=== PATIENT | female | born 1985 | race Caucasian/White ===

== ENCOUNTER → 2017-02-06 | Outpatient (CLI) | payer BC | END | disposition home or self-care (01) | LOC: LABWHC1 15:31 | PROVIDERS: ATTEND Obstetrics & Gynecology | DX: Z34.80 Encounter for supervision of other normal pregnancy, unspecified trimester (principal) | CPT/HCPCS: 36415; 84702 ==

== ENCOUNTER → 2017-02-10 | Outpatient (CLI) | payer BC ==
[2017-02-10 16:06] LABS: CH 33.3; CHCM 33.8; HDW 2.19; HGB 12.5 gm/dL (11.4-16.0); MCH 32.5 pg (25.0-35.0); MCHC 32.9 g/dL (31.0-37.0); MCV 98.8 fL (80.0-100.0); Mean Platelet Volume 7.6; RBC 3.85 m/uL (3.80-5.40); WBC 7.9 k/uL (3.8-10.6)
[2017-02-10 16:20] LABS: Glucose 81 mg/dL (74-99); Non-African American GFR(MDRD) >60 (>60 ml/min/1.73 sqM)
[2017-02-10 19:11] LABS: Hepatitis B Surface Ag Index 0.06
[2017-02-11 01:17] LABS: Treponemal Ab Non-Reactive (Non-Reactive)
[2017-02-11 04:26] LABS: Toxoplasma Antibody (IgG) <3.0 IU/mL (<7.2)
== END | disposition home or self-care (01) ==
LOC: LABWHC1 15:37
PROVIDERS: ATTEND Obstetrics & Gynecology
DX: Z34.81 Encounter for supervision of other normal pregnancy, first trimester (principal)
CPT/HCPCS: 36415; 82565; 82947; 84702; 85027; 86762; 86777; 86778; 86780; 86850; 86900; 86901; 87340; 87390

== ENCOUNTER → 2017-02-19 | Outpatient (CLI) | payer BC | END | disposition home or self-care (01) | LOC: LABWHC1 15:55 | PROVIDERS: ATTEND Obstetrics & Gynecology | DX: O02.1 Missed abortion (principal) | CPT/HCPCS: 36415; 84702 ==

== ENCOUNTER 2017-02-28 05:54 | Day surgery (SDC) | payer BC ==
[2017-02-25 15:46] VITALS: BMI 21.9
--- NOTE | 2017-02-27 12:56 | P.HPOB ---
History of Present Illness H&P Date: 02/27/17 Chief Complaint: Missed This patient is a pleasant 31-year-old 5 para 3 living 2 female who called my office after having a positive test with an IUD. Patient's IUD was found to be in the proper position and a gestational sac in the uterus above the IUD. IUD was subsequently removed. Patient's serial ultrasounds have shown a persistent empty gestational sac the patient most recently has begun bleeding and these findings are consistent with a missed . Patient is now requesting suction D&C for treatment. Review of Systems Constitutional: Denies chills, Denies fever Cardiovascular: Denies chest pain, Denies shortness of breath Respiratory: Denies cough Gastrointestinal: Reports heartburn Genitourinary: Reports Menstruation: Reports as per HPI Past Medical History Additional Past Medical History / Comment(s): CURRENT MISSED AB. History of Any Multi-Drug Resistant Organisms: None Reported Additional Past Surgical History / Comment(s): D&C. Past Anesthesia/Blood Transfusion Reactions: No Reported Reaction Past Psychological History: No Psychological Hx Reported Smoking Status: Light tobacco smoker Past Drug Use History: None Reported - Past Family History Mother Family Medical History: No Reported History Medications and Allergies Home Medications Medication Instructions Recorded Confirmed Type No Known Home Medications [No 02/25/17 02/25/17 History Known Home Medications] Allergies Allergy/AdvReac Type Severity Reaction Status Date / Time No Known Allergies Allergy Verified 02/25/17 15:15 Exam - OBG Physical Exam Vulva: both: normal Vagina: normal moisture, no discharge Cervix: no lesion, no discharge Uterus: enlarged (Uterus is 5 weeks size) Results Patient's blood type is O+. Serial ultrasounds show a nonviable gestational sac approximately 5-6 weeks. Assessment and Plan (1) Missed Narrative/Plan: This is a pleasant 31-year-old 5 para 3 female with a 5-6 week missed . Patient is requesting suction D&C at this time. Patient I discussed the surgery and risks including risks of infection, bleeding, possible uterine perforation. All the patient's questions and answered and a written consent is obtained. Status: Acute
[~2017-02-28 05:54] MED LIST: Pre Op ABX Message 1 EACH MISC MISCELLANE ONE
[2017-02-28] MEDS ORDERED: DEXAMETHASONE SOD PHOSPHATE 10 MG/ML 1 ML VIAL IV ONE (06:00)
[2017-02-28] MEDS ORDERED: HYDROmorphone 0.5 MG/0.5 ML SYRINGE IVP PRN (06:00)
[2017-02-28] MEDS ORDERED: MIDAZOLAM 2 MG/2 ML VIAL IV PRN (06:00)
[2017-02-28] MEDS ORDERED: SCOPOLAMINE 1.5MG/72HR PATCH TRANSDERM ONE (06:00)
[2017-02-28] MEDS ORDERED: LACTATED RINGERS 1,000 ML IV SCH (06:00)
[2017-02-28] MEDS ORDERED: ONDANSETRON 4 MG/2 ML VIAL IVP ONE (06:00)
[2017-02-28 06:18] VITALS: RESP 16; TEMP 97.4
[2017-02-28] MEDS ORDERED: LIDOCAINE 1% 20 ML VIAL (10MG/ML) FOR IV START INTRADERMA ONE (06:28)
[2017-02-28] MEDS ORDERED: MIDAZOLAM 2 MG/2 ML VIAL ONE (06:48)
[2017-02-28] MEDS ORDERED: fentaNYL (PF) 50 MCG/ML 2 ML AMP ONE (06:48)
[2017-02-28] MEDS ORDERED: LIDOCAINE 1% INJ 10MG/ML (20 ML MDV) ONE (06:48)
[2017-02-28] MEDS ORDERED: KETOROLAC 30 MG/ML 1 ML VIAL ONE ×2 (06:48)
[2017-02-28] MEDS ORDERED: PROPOFOL 10 MG/ML 20 ML VIAL IV ONE (06:48)
--- NOTE | 2017-02-28 07:13 | P.OP ---
Date of Procedure: 02/28/17 Preoperative Diagnosis: Missed Postoperative Diagnosis: Same Procedure(s) Performed: Suction D&C Anesthesia: MAC Surgeon: Danny Jackman Estimated Blood Loss (ml): 75 Pathology: other (Uterine contents) Condition: stable Disposition: PACU Indications for Procedure: Please see dictated H&P for intimate details of this patient's admission. Brief summary this is a pleasant 31-year-old female who had a persistent empty gestational sac consistent with a 5-6 week missed . Patient to begin some spotting about 2 days ago was now requested suction D&C for treatment. Patient does understand the surgery and risks including risks of infection, bleeding, possible uterine perforation. All the patient's questions are answered written consent is obtained. Operative Findings: This patient had a generous amount of Description of Procedure: This patient is taken to the operating room where she is laid in the supine position. She subsequently undergoes general mask anesthesia without incident. With an adequate level of anesthesia she's placed in dorsal lithotomy position. She has a vaginal perineal prep and drape. Bladder is drained for approximately 30 mL of clear urine. Examination under anesthesia shows a mid position uterus slightly enlarged. A weighted speculum was placed in the posterior vagina. The anterior lip of the cervix is grabbed with an Allis clamp and the cervix was gently dilated to allow a curved 8 suction curette easily and uterine cavity. Suction is applied and a large amount of tissue is removed it does appear to be somewhat degenerated. After multiple passes with the suction curet no further tissue was noted. A gentle but thorough 4 quadrant curettage is then done again no further tissue was noted. A final pass of the suction curet is done. There is minimal bleeding. At this point the procedure is ended. The Allis clamp and weighted speculum removed. All counts correct 3. There are no complications. Patient is awakened from anesthesia and taken recovery room in satisfactory condition.
[2017-02-28 08:32] VITALS: BP 103/66; PULSE 69
== END 2017-02-28 08:53 | disposition home or self-care (01) ==
LOC: OR 05:54
PROVIDERS: ATTEND Obstetrics & Gynecology
DX: O02.1 Missed abortion (principal); Z3A.01 Less than 8 weeks gestation of pregnancy; F17.200 Nicotine dependence, unspecified, uncomplicated
CPT/HCPCS: 59820; 88305; J2250; J1100; J2405; J2001; J3010; J1885; J2704

== ENCOUNTER → 2017-09-08 | Outpatient (CLI) | payer BC ==
[2017-09-08 09:03] LABS: HCT 35.6 % (34.0-46.0); HGB 12.4 gm/dL (11.4-16.0); MCH 33.1 pg (25.0-35.0); MCHC 34.7 g/dL (31.0-37.0); MCV 95.4 fL (80.0-100.0); Mean Platelet Volume 7.1; Platelet Count 202 k/uL (150-450); RBC 3.74 m/uL (3.80-5.40); RDW 12.9 % (11.5-15.5); WBC 8.4 k/uL (3.8-10.6)
[2017-09-08 09:20] LABS: Glucose 68 mg/dL (74-99)
[2017-09-08 16:51] LABS: HIV AB P24 Non-Reactive (Non-Reactive); HIV P24 AG Non-Reactive (Non-Reactive)
[2017-09-09 05:56] LABS: Toxoplasma Antibody (IgG) <3.0 IU/mL (<7.2); Toxoplasma Antibody (IgM) <3.0 AU/mL (<8.0)
== END ==
LOC: LABWHC1 08:29
PROVIDERS: ATTEND Obstetrics & Gynecology
DX: O26.812 Pregnancy related exhaustion and fatigue, second trimester (principal); Z3A.00 Weeks of gestation of pregnancy not specified
CPT/HCPCS: 36415; 82565; 82947; 85027; 86762; 86777; 86778; 86780; 86850; 86900; 86901; 87340; 87390

== ENCOUNTER 2018-01-27 05:57 | Inpatient (IN) | payer BC ==
[2018-01-27] MEDS ORDERED: TERBUTALINE 1 MG/ML VIAL SQ PRN (06:08)
[2018-01-27] MEDS ORDERED: LIDOCAINE 1% (PF) 10 MG/ML (30 ML SDV) SQ PRN (06:08)
[2018-01-27] MEDS ORDERED: OXYTOCIN 10 UNIT/ML 1 ML VIAL IM PRN (06:08)
[2018-01-27] MEDS ORDERED: OXYTOCIN 20 UNITS/1000 ML NS 1,000 ML IV SCH ×2 (06:08→14:59)
[2018-01-27] MEDS ORDERED: METHYLERGONOVINE 0.2 MG/ML 1 ML AMP IM PRN (06:08)
[2018-01-27] MEDS ORDERED: CARBOPROST TROMETHAMINE 250 MCG/ML 1 ML AMP IM PRN (06:08)
[2018-01-27] MEDS: LACTATED RINGERS 1,000 ML IV SCH ×3 (06:24→10:55)
--- NOTE | 2018-01-27 06:27 | P.HPOB ---
History of Present Illness H&P Date: 01/27/18 Chief Complaint: Induction of labor This patient is a pleasant 32-year-old 5 para 3 living 2 female estimated date of confinement 02/02/2018 estimated gestational age 39 and one sevenths weeks who presents to labor and delivery for induction of labor at term secondary to previous 36 week stillborn. Patient's history is such that in her second she had a 36 week stillborn secondary to a cord accident. Patient's had a normal prior and after. Patient's been followed with growth ultrasounds and nonstress testing which has been normal. She is now at term/39 weeks with a favorable cervix and plan is to proceed with induction. is been otherwise uncomplicated. Review of Systems Gastrointestinal: Reports heartburn Genitourinary: Reports Menstruation: Reports amenorrhea Past Medical History Past Medical History: No Reported History Additional Past Medical History / Comment(s): Patient has had 3 spontaneous vaginal deliveries. Second was a stillborn at 36 weeks secondary to cord accident. History of Any Multi-Drug Resistant Organisms: None Reported Additional Past Surgical History / Comment(s): D&C. Past Anesthesia/Blood Transfusion Reactions: No Reported Reaction Past Psychological History: No Psychological Hx Reported Smoking Status: Light tobacco smoker Past Alcohol Use History: None Reported Past Drug Use History: None Reported - Past Family History Mother Family Medical History: No Reported History Medications and Allergies Home Medications Medication Instructions Recorded Confirmed Type Pnv No.95/Ferrous Fum/Folic AC 1 tab PO DAILY 01/27/18 01/27/18 History [ Multivitamin Tablet] Allergies Allergy/AdvReac Type Severity Reaction Status Date / Time No Known Allergies Allergy Verified 01/27/18 06:07 Exam Intake and Output 01/26/18 01/26/18 01/27/18 14:59 22:59 06:59 Other: Weight 90.718 kg - OBG Physical Exam Abdomen: bowel sounds normal, no diffuse tenderness, no bruit present, no guarding noted, no hepatomegaly, no splenomegaly, no mass Vulva: both: normal Vagina: normal moisture, no discharge Cervix: no lesion (Cervix in the office is 2 cm and soft.), no discharge Uterus: enlarged (Fundal height is 38 cm) Results blood work shows she is O positive, rubella nonimmune, RPR is nonreactive, HIV is nonreactive, hepatitis B is negative, ultrasounds have been normal, group B strep was negative, Glucola was normal. Assessment and Plan Assessment: This is a pleasant 32-year-old 6 para 3 female estimated gestational age 39 and one sevenths weeks gestation who is admitted to labor and delivery for induction of labor secondary to history of previous stillborn. Plan is induction of labor and anticipate vaginal delivery. (1) Third trimester Current Visit: Yes Status: Acute Code(s): Z34.93 - ENCNTR FOR SUPRVSN OF NORMAL PREG, UNSP, THIRD TRIMESTER SNOMED Code(s): 26195155 (2) History of stillbirth Current Visit: Yes Status: Acute Code(s): Z87.59 - PERSONAL HISTORY OF COMP OF PREG, CHLDBRTH AND THE PUERP SNOMED Code(s): 966485576 (3) Elective induction of labor planned Current Visit: Yes Status: Acute Code(s): EWJ1581 - SNOMED Code(s): 822574906
[2018-01-27 06:33] LABS: Basophils % (A) 0 %; Eosinophils # (A) 0.1 k/uL (0-0.7); Eosinophils % (A) 1 %; HCT 38.4 % (34.0-46.0); HGB 12.6 gm/dL (11.4-16.0); Lymphocytes # (A) 2.3 k/uL (1.0-4.8); Lymphocytes % (A) 20 %; MCH 31.5 pg (25.0-35.0); MCHC 32.7 g/dL (31.0-37.0); MCV 96.4 fL (80.0-100.0); Mean Platelet Volume 7.1; Monocytes # (A) 0.9 k/uL (0-1.0); Monocytes % (A) 8 %; Neutrophils # (A) 7.6 k/uL (1.3-7.7); Neutrophils % (A) 68 %; Platelet Count 201 k/uL (150-450); RBC 3.98 m/uL (3.80-5.40); WBC 11.2 k/uL (3.8-10.6)
[2018-01-27 07:04] VITALS: BMI 32.3
[2018-01-27] MEDS ORDERED: ROPIVACAINE 100 MG, fentaNYL (PF) 200 MCG in SODIUM CHLORIDE 0.9% 76 ML EPIDURAL ONE (13:36)
--- NOTE | 2018-01-27 14:41 | P.PROBDLV ---
Vaginal Delivery Note - . Vaginal Delivery Note: Normal vaginal delivery viable male infant Apgars 9 and 9 delivery time is 1425 hrs. Please see dictated H&P for intimate details of this patient's admission. Brief summary this pleasant 32-year-old 6 para 4 living 3 female who is admitted to labor and delivery for induction of labor due to history of previous 36 week stillborn. Patient is admitted she is 2-3 cm dilated has artificial rupture membranes for clear fluid. Labor is induced with Pitocin per protocol. Patient's labor progresses normally she does get an epidural for pain control. Patient gets to complete pushes the head to the perineum. Posterior perineum is supported we have controlled delivery of infant's head over the intact perineum. Straight occiput tear presentation. After delivery delivery of the 's head I bulb suction the mouth and nares. There is a nuchal cord which is loose and reduced. Gentle downward traction we then have delivery the anterior and posterior shoulder and rest this 's body. This is a vigorous viable male infant Apgars are 9 and 9 delivery time is 1425 hrs. After delivery of the the umbilical cords without to quit pulsating then doubly clamped and cut. Placenta spontaneously delivered intact. Estimated blood loss is 100 mL. There is a superficial bilateral labial lacerations the right 1 requires one [id number] stitch otherwise there are hemostatic and intact. and mother stable delivery room. All counts correct 3. There are no complications.
[2018-01-27] MEDS ORDERED: DIPH,PERTUS(ACELL)TETVAC-LF 0.5 ML VIAL IM ONE (14:42)
[2018-01-27] MEDS ORDERED: diphenhydrAMINE 25 MG CAP PO PRN (14:59)
[2018-01-27] MEDS ORDERED: LANOLIN CREAM 5 GM TUBE TOPICAL PRN (14:59)
[2018-01-27] MEDS ORDERED: ZOLPIDEM 5 MG TAB PO PRN (14:59)
[2018-01-27] MEDS ORDERED: WITCH HAZEL 1 EACH MED..PAD TOPICAL PRN (14:59)
[2018-01-27] MEDS ORDERED: BENZOCAINE/MENTHOL SPRAY 1 GM/SPRAY AEROSOL TOPICAL PRN (14:59)
[2018-01-27] MEDS ORDERED: diphenhydrAMINE 50 MG/ML 1 ML VIAL IVP PRN (14:59)
[2018-01-27] MEDS ORDERED: MEASLES-MUMPS-RUBELLA VACC/PF 12,500 UNIT/0.5 ML VIAL SQ ONE (14:59)
[2018-01-27] MEDS ORDERED: HYDROCORTISONE 2.5% RECTAL CREAM 30 GM TUBE RECTAL PRN (14:59)
[2018-01-27] MEDS ORDERED: BISACODYL 10 MG SUPP RECTAL PRN (14:59)
[2018-01-27] MEDS ORDERED: SIMETHICONE 80 MG CHEWABLE PO PRN (14:59)
[2018-01-27] MEDS: SENNOSIDES-DOCUSATE SODIUM 1 EACH TAB PO SCH ×2 (15:17→20:54)
[2018-01-27] MEDS: IBUPROFEN 600 MG TAB PO PRN (20:40)
[2018-01-27 20:50] VITALS: RESP 16
[2018-01-27] MEDS: ACETAMINOPHEN TAB 325 MG TAB PO PRN (23:29)
[2018-01-28] MEDS: IBUPROFEN 600 MG TAB PO PRN ×2 (02:51→08:10)
[2018-01-28] MEDS: ACETAMINOPHEN TAB 325 MG TAB PO PRN (04:17)
--- NOTE | 2018-01-28 06:35 | P.PNOBGVD ---
Subjective - Subjective Patient reports: Reports appetite normal, Reports voiding normally, Reports pain well controlled, Reports ambulating normally : doing well Objective - Latest Vital Signs Latest vital signs: Vital Signs Temp Pulse Resp BP Pulse Ox 01/28/18 00:00 97.9 F 82 16 111/72 01/27/18 20:00 98.4 F 95 16 116/68 01/27/18 16:41 98.5 F 97 17 113/54 98 01/27/18 16:11 109 H 17 108/83 01/27/18 15:41 98.0 F 114 H 17 108/83 01/27/18 15:26 108 H 18 110/56 01/27/18 15:11 107 H 16 122/61 01/27/18 14:56 92 17 122/53 01/27/18 14:41 97.5 F L 100 18 102/55 98 Intake and Output 01/27/18 01/27/18 01/28/18 14:59 22:59 06:59 Intake Total 24.2 975.8 Output Total 500 Balance -475.8 975.8 Intake: Intake, IV Titration 24.2 975.8 Amount Oxytocin 20 Units/1000 ml 24.2 975.8 Ns 1,000 ml @ 1 MILLIUNIT/MIN 3 mls/hr IV .Q24H [facility] Rx#:[id number] Output: Urine 500 Other: # Voids 1 2 - Exam Lungs: bilateral: normal Chest: Normal S1, Normal S2 Extremities: Present: normal Abdomen: Present: normal appearance, soft Uterus: Present: normal, firm - Labs Labs: Abnormal Lab Results - Last 24 Hours (Table) 01/27/18 Range/Units 06:20 WBC 11.2 H (3.8-10.6) k/uL Assessment and Plan Assessment: Patient is resting without complaints and wishes to go home. Vital signs are stable she is afebrile. Uterus is firm nontender, and she is having normal lochia. My impression that this is a normal course. Plan is to continue routine care discharge home later today. (1) Third trimester Current Visit: Yes Status: Acute Code(s): Z34.93 - ENCNTR FOR SUPRVSN OF NORMAL PREG, UNSP, THIRD TRIMESTER SNOMED Code(s): 50127503 (2) History of stillbirth Current Visit: Yes Status: Acute Code(s): Z87.59 - PERSONAL HISTORY OF COMP OF PREG, CHLDBRTH AND THE PUERP SNOMED Code(s): 251106991 (3) Elective induction of labor planned Current Visit: Yes Status: Acute Code(s): CNK1865 - SNOMED Code(s): 943149512
--- NOTE | 2018-01-28 06:40 | P.DS ---
Providers Date of admission: 01/27/18 05:57 Expected date of discharge: 01/28/18 Attending physician: Danny Jackman Primary care physician: Stated None - Discharge Diagnosis(es) (1) Third trimester Current Visit: Yes Status: Acute (2) History of stillbirth Current Visit: Yes Status: Acute (3) Elective induction of labor planned Current Visit: Yes Status: Acute Hospital Course: Please see dictated H&P for intimate details of this patient's admission. Brief summary this pleasant 32-year-old female 39 and one sevenths weeks gestation admitted to labor and delivery for elective induction of labor. Patient is uncomplicated induction of labor was on have a vaginal delivery viable male . Please see dictated delivery note. day 1 patient wishes to go home. Patient's felt to be stable for discharge home follow up with me in 6 weeks. Procedures: Induction of labor normal vaginal delivery. Patient Condition at Discharge: Good Plan - Discharge Summary New Discharge Prescriptions: New Ibuprofen [Motrin] 600 mg PO Q6HR PRN #40 tab PRN Reason: Mild Pain Or Fever >= 100.5 No Action Pnv No.95/Ferrous Fum/Folic AC [ Multivitamin Tablet] 1 tab PO DAILY Discharge Medication List Pnv No.95/Ferrous Fum/Folic AC [ Multivitamin Tablet] 1 tab PO DAILY 09/10 [History] Ibuprofen [Motrin] 600 mg PO Q6HR PRN #40 tab 01/28/18 [Rx] Follow up Appointment(s)/Referral(s): Danny Jackman MD [STAFF PHYSICIAN] - 03/10/18 9:15 am Patient Instructions/Handouts: Vaginal Delivery (DC) Activity/Diet/Wound Care/Special Instructions: No intercourse or anything per vagina for 6 weeks. Please call if any fever, chills, excessive vaginal bleeding, and/or abdominal pain. Discharge Disposition: HOME SELF-CARE
[2018-01-28] MEDS: SENNOSIDES-DOCUSATE SODIUM 1 EACH TAB PO SCH (08:10)
[2018-01-28 17:10] VITALS: BP 112/70; PULSE 68; TEMP 98
== END 2018-01-28 16:20 | disposition home or self-care (01) | DRG 775 ==
LOC: 4FBP 05:57
PROVIDERS: ADMIT Obstetrics & Gynecology; ATTEND Obstetrics & Gynecology
PROC: 10E0XZZ Delivery of Products of Conception, External Approach (ICD-10-PCS; principal; 2018-01-27)
PROC: 0HQ9XZZ Repair Perineum Skin, External Approach (ICD-10-PCS; 2018-01-27)
PROC: 3E033VJ Introduction of Other Hormone into Peripheral Vein, Percutaneous Approach (ICD-10-PCS; 2018-01-27)
PROC: 10907ZC Drainage of Amniotic Fluid, Therapeutic from Products of Conception, Via Natural or Artificial Opening (ICD-10-PCS; 2018-01-27)
PROC: 00HU33Z Insertion of Infusion Device into Spinal Canal, Percutaneous Approach (ICD-10-PCS; 2018-01-27)
PROC: 3E0R3BZ Introduction of Anesthetic Agent into Spinal Canal, Percutaneous Approach (ICD-10-PCS; 2018-01-27)
PROC: 3E0134Z Introduction of Serum, Toxoid and Vaccine into Subcutaneous Tissue, Percutaneous Approach (ICD-10-PCS; 2018-01-27)
PROC: 3E0234Z Introduction of Serum, Toxoid and Vaccine into Muscle, Percutaneous Approach (ICD-10-PCS; 2018-01-27)
DX: O69.81X0 Labor and delivery complicated by cord around neck, without compression, not applicable or unspecified (principal); F17.200 Nicotine dependence, unspecified, uncomplicated; O99.334 Smoking (tobacco) complicating childbirth; O70.0 First degree perineal laceration during delivery; Z37.0 Single live birth; Z3A.39 39 weeks gestation of pregnancy; Z23 Encounter for immunization; Z79.899 Other long term (current) drug therapy; Z87.59 Personal history of other complications of pregnancy, childbirth and the puerperium
CPT/HCPCS: 85025; 90707; 90715

== ENCOUNTER 2023-01-10 23:01 | Emergency (ER) | payer BC ==
[2023-01-10 23:35] VITALS: RESP 18
[2023-01-11] MEDS ORDERED: LIDOCAINE 1% INJ 10MG/ML (20 ML MDV) SQ ONE (00:10)
--- NOTE | 2023-01-11 01:08 | ED ---
Wound/Laceration HPI - General Chief Complaint: Wound/Laceration Stated Complaint: Laceration on right arm Time Seen by Provider: 01/11/23 00:00 Source: patient Mode of arrival: ambulatory Limitations: no limitations - History of Present Illness Initial Comments: 37-year-old male presenting with chief complaint of laceration. Patient states she was wrestling with her child when she cut the posterior portion of the right arm on the bed frame. Last tetanus shot was in 2018. Bleeding is well- controlled at this time. Adipose tissue is visible. She has full range of motion of the arm. - Related Data Home Medications Medication Instructions Recorded Confirmed Pnv No.95/Ferrous Fum/Folic AC 1 tab PO DAILY 01/27/18 01/27/18 [ Multivitamin Tablet] Previous Rx's Medication Instructions Recorded Ibuprofen [Motrin] 600 mg PO Q6HR PRN #40 tab 01/28/18 Allergies Allergy/AdvReac Type Severity Reaction Status Date / Time No Known Allergies Allergy Verified 01/27/18 06:07 Review of Systems ROS Statement: Those systems with pertinent positive or pertinent negative responses have been documented in the HPI. ROS Other: All systems not noted in ROS Statement are negative. Past Medical History Past Medical History: No Reported History Additional Past Medical History / Comment(s): Patient has had 3 spontaneous vaginal deliveries. Second was a stillborn at 36 weeks secondary to cord accident. History of Any Multi-Drug Resistant Organisms: None Reported Additional Past Surgical History / Comment(s): D&C. Past Anesthesia/Blood Transfusion Reactions: No Reported Reaction Past Psychological History: No Psychological Hx Reported Past Alcohol Use History: None Reported Past Drug Use History: None Reported - Past Family History Mother Family Medical History: No Reported History General Exam Limitations: no limitations General appearance: alert, in no apparent distress Head exam: Present: atraumatic, normocephalic, normal inspection Eye exam: Present: normal appearance, EOMI Neck exam: Present: normal inspection, full ROM Respiratory exam: Absent: respiratory distress Neurological exam: Present: alert, oriented X3, CN II-XII intact Psychiatric exam: Present: normal affect, normal mood Expanded Type of lesion: Present: laceration (6 cm laceration to the right arm) Course Vital Signs 01/10/23 01/11/23 23:30 01:00 Temperature 98.2 F 98.0 F Pulse Rate 79 70 Respiratory 18 18 Rate Blood Pressure 117/79 130/82 O2 Sat by Pulse 98 99 Oximetry Procedures - Laceration Laceration #1 Consent Obtained: verbal consent Indication: laceration Site: upper extremity (right arm) Description: linear Depth: simple, single layer Anesthetic Used: lidocaine 1%, without epi Anesthesia Technique: local infiltration Pre-repair: wound explored Type of Sutures: nylon Size of Sutures: 4-0 Number of Sutures: 9 Technique: simple, interrupted Patient Tolerated Procedure: well Medical Decision Making - Medical Decision Making Was pt. sent in by a medical professional or institution (, PA, UNIV[employer]ITY [employer]ER, urgent care, hospital, or senior living...) When possible be specific @ -No Did you speak to anyone other than the patient for history (EMS, parent, family, police, friend...)? What history was obtained from this source @ -No Did you review nursing and triage notes (agree or disagree)? Why? @ -I reviewed and agree with nursing and triage notes Were old charts reviewed (outside hosp., previous admission, EMS record, old EKG, old radiological studies, urgent care reports/EKG's, senior living records)? Report findings @ -No old charts were reviewed Differential Diagnosis (chest pain, altered mental status, abdominal pain women, abdominal pain men, vaginal bleeding, weakness, fever, dyspnea, syncope, headache, dizziness, GI bleed, back pain, seizure, CVA, palpatations, mental health, musculoskeletal)? @ -not applicable EKG interpreted by me (3pts min.). @ -As above X-rays interpreted by me (1pt min.). @ -None done CT interpreted by me (1pt min.). @ -None done U/S interpreted by me (1pt. min.). @ -None done What testing was considered but not performed or refused? (CT, X-rays, U/S, labs)? Why? @ -None What meds were considered but not given or refused? Why? @ -None Did you discuss the management of the patient with other professionals (professionals i.e. KENDALL Truong, UNIVERSITY LECTURER, lab, RT, psych nurse, rn social work, resource specialist, teacher, philanthropy officer, nurse case manager)? Give summary @ -No Was smoking cessation discussed for >3mins.? @ -No Was critical care preformed (if so, how long)? @ -No Were there social determinants of health that impacted care today? How? (Homelessness, low income, unemployed, alcoholism, drug addiction, transportation, low edu. Level, literacy, decrease access to med. care, correction, rehab)? @ -No Was there de-escalation of care discussed even if they declined (Discuss DNR or withdrawal of care, Hospice)? DNR status @ -No What co-morbidities impacted this encounter? (DM, HTN, Smoking, COPD, CAD, Cancer, CVA, ARF, Chemo, Hep., AIDS, mental health diagnosis, sleep apnea, morbid obesity)? @ -None Was patient admitted / discharged? Hospital course, mention meds given and route, prescriptions, significant lab abnormalities, going to OR and other pertinent info. @ -37-year-old female presenting with chief complaint of laceration to the right arm. 6 cm in length. 9 sutures applied. See procedure note for details. He was educated on wound care and signs of infection. Her tetanus is up-to-date. Follow-up with PCP. Report back to ER with any new or worsening symptoms. Discussed return parameters and answered all questions. Patient conveyed verbal understanding and agreed to the plan. I discussed this case in detail with my attending Dr. Pandey Undiagnosed new problem with uncertain prognosis? @ -No Drug Therapy requiring intensive monitoring for toxicity (Heparin, Nitro, Insulin, Cardizem)? @ -No Were any procedures done? @ -Laceration repair Diagnosis/symptom? @ -Laceration Acute, or Chronic, or Acute on Chronic? @ -Acute Uncomplicated (without systemic symptoms) or Complicated (systemic symptoms)? @ -Uncomplicated Side effects of treatment? @ -No Exacerbation, Progression, or Severe Exacerbation? @ -No Poses a threat to life or bodily function? How? (Chest pain, [place], PA, pneumonia, PE, COPD, DKA, ARF, appy, cholecystitis, CVA, Diverticulitis, Homicidal, S uicidal, threat to staff... and all critical care pts) @ -No Disposition Clinical Impression: Laceration Disposition: HOME SELF-CARE Condition: Good Instructions (If sedation given, give patient instructions): Care For Your Stitches (ED), Laceration (ED) Additional Instructions: PCP. Report back to ER with any new or worsening symptoms. Take Motrin and Tylenol as needed for any pain control. Keep the wound clean, dry, and covered. He may wash gently with soap and water. Avoid fully submerging the wound such as baths or swimming. Sutures may be removed in 7-10 days Is patient prescribed a controlled substance at d/c from ED?: No Referrals: None,Stated [Primary Care Provider] - 1-2 days Time of Disposition: 01:08
[2023-01-11 01:20] VITALS: BP 130/82; PULSE 70; TEMP 98
== END 2023-01-11 01:20 | disposition home or self-care (01) ==
LOC: EC 23:01
DX: S41.111A Laceration without foreign body of right upper arm, initial encounter (principal); W45.8XXA Other foreign body or object entering through skin, initial encounter; Y93.72 Activity, wrestling
CPT/HCPCS: 99283; 12002; J2001